=== PATIENT | female | born 1975 | race Caucasian/White ===

== ENCOUNTER 2017-07-09 14:30 | Observation (INO) | payer SELFPAY ==
[2017-07-09 14:31] VITALS: BMI 24.8
[2017-07-09] MEDS ORDERED: Sodium Chloride 0.9% 1,000 ML IV STA (15:43)
[2017-07-09 16:07] LABS: BASO # 0.1 K/uL (0.0-0.2); BASO % 0.9 % (0.0-2.0); EOS # 0.1 K/uL (0.0-0.7); EOS % 0.7 % (0.0-4.0); HEMOGLOBIN 14.7 g/dL (12.0-16.0); LYMPH # 2.7 K/uL (1.0-4.3); LYMPH % 26.3 % (20.0-40.0); MEAN CELL VOLUME 88.1 fl (81.0-99.0); MEAN CORPUSCULAR HEMOGLOBIN 29.5 pg (27.0-31.0); MEAN CORPUSCULAR HGB CONC 33.5 g/dL (33.0-37.0); MEAN PLATELET VOLUME 8.3 fl (7.2-11.7); MONO # 0.5 K/uL (0.0-0.8); MONO % 4.8 % (0.0-10.0); NEUT % 67.3 % (50.0-75.0); RBC 4.99 Mil/uL (3.80-5.20); RED CELL DISTRIBUTION WIDTH 13.2 % (11.5-14.5); WHITE BLOOD COUNT 10.5 K/uL (4.8-10.8)
[2017-07-09 16:19] LABS: ALB/GLOB RATIO 1.3 (1.0-2.1); ALBUMIN 4.4 g/dL (3.5-5.0); ALT/SGPT 27 U/L (9-52); AST/SGOT 26 U/L (14-36); BLOOD UREA NITROGEN 9 mg/dl (7-17); CALCIUM 9.6 mg/dL (8.4-10.2); GFR AFRICAN-AMERICAN > 60; GFR NON-AFRICAN AMERICAN > 60
--- NOTE | 2017-07-09 16:23 | RAD ---
HISTORY: COMPARISON: 02/21/2014. TECHNIQUE: Chest PA and lateral FINDINGS: LINES AND TUBES: None. LUNG AND PLEURA: The lungs are well inflated and clear. HEART AND MEDIASTINUM: The heart is not enlarged. The hilar and mediastinal contours are within normal limits. SKELETAL STRUCTURES: The bony structures are within normal limits for the patient's age. VISUALIZED UPPER ABDOMEN: Normal. OTHER FINDINGS: None. IMPRESSION: No active pulmonary disease.
[2017-07-09 16:35] LABS: PROTHROMBIN TIME 11.3 Seconds (9.8-13.1)
--- NOTE | 2017-07-09 18:29 | ED PDOC ---
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 Stating she dropped her child off at school, on walk back became SOB w/ the headache and "coldness" to her right arm. She feels the right arm is a bit heavier than the left but denies symptoms in lower extremity, or numbness, change in speech or vision. 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 She takes no medications now and denies history of blood clots, recent trauma, fever, malaise, or incoordination. NIHSS Stroke Scale - Date/Time Evaluation Performed Date Performed: 07/09/17 Time Performed: 15:02 When Was NIHSS Performed: Baseline - How Severe is the Stroke Level of Consciousness: 0=Alert LOC to Questions: 0=Both comments correct LOC to commands: 0=Obeys both correctly Best Gaze: 0=Normal Visual: 0=No visual loss Facial: 0=Normal Motor Arm - Left: 0=No drift Motor Arm - Right: 1=Drift noted before 10 sec Motor Leg - Left: 0=No drift Motor Leg - Right: 0=No drift Limb Ataxia: 0=Absent Sensory: 0=Normal Best Language: 0=No aphasia Dysarthia: 0=Normal articulation Extinction & Inattention (Neglect): 0=Normal, no object Score: 1 rTPA Inclusion/Exclusion - Refusal of Treatment Patient Refused Treatment: No - Inclusion Criteria for Altepase Patient is 18 years or Older: Yes The Clinical Diagnosis of Ischemic Stroke That is Causing a Potentially Disabling Neurological Deficit: Yes Time of Onset is Well Established to be Less Than 270 Minute Before Treatment Would Begin: No Risk/Benefit Discussed With Patient/Family Member Present: No - Warning to TPA With Conditions Following Conditions Weighed Against Anticipated Benefit: Yes Condition: Stroke Serevity Too Mild Past Medical History Reviewed: Historical Data, Nursing Documentation, Vital Signs Vital Signs: Last Vital Signs Temp 98.0 F 07/09/17 14:39 Pulse 87 07/09/17 14:39 Resp 16 07/09/17 16:12 BP 119/73 07/09/17 14:39 Pulse Ox 100 07/09/17 14:39 - Medical History PMH: CVA (?) - Surgical History Other surgeries: tubal lig - Family History Family History: States: Unknown Family Hx - Living Arrangements Living Arrangements: With Family - Social History Current smoker - smoking cessation education provided: No - Home Medications Home Medications: Ambulatory Orders Medication Instructions Recorded Aminogen (Supplement) 1 tab PO DAILY 02/21/14 B/Ca/Cr/Cu/mg/Mn/Se/Zinc [Joint 2 tab PO DAILY 02/21/14 Health Mineral Formulation] Ca Pantothenate/Folic Acid/V [Once 1 tab PO DAILY 02/21/14 Daily Multi-Vitamin] Calcium Carbonate [Calcium] 2 tab PO DAILY 02/21/14 Cell Support (Supplement) 1 tab PO DAILY 02/21/14 Garlic [Garlic] 1 tab PO DAILY 02/21/14 Relax Now Sleep Supplement 1 tab PO HS PRN 02/21/14 Aspirin [Ecotrin] 81 mg PO DAILY #7 ect 02/24/14 - Allergies Allergies/Adverse Reactions: Allergies Allergy/AdvReac Type Severity Reaction Status Date / Time No Known Allergies Allergy Verified 08/31/13 10:47 Review of Systems ROS Statement: Except As Marked, All Systems Reviewed And Found Negative Constitutional: Negative for: Fever, Chills Cardiovascular: Negative for: Chest Pain, Palpitations Respiratory: Positive for: Shortness of Breath, SOB with Exertion Gastrointestinal: Positive for: Nausea. Negative for: Abdominal Pain Genitourinary Female: Negative for: Dysuria, Frequency Musculoskeletal: Negative for: Neck Pain Skin: Negative for: Rash, Lesions Neurological: Positive for: Weakness, Headache, Dizziness. Negative for: Numbness, Incoordination, Change in Speech, Confusion, Seizures, Altered Mental Status Psych: Positive for: Anxiety. Negative for: Depression Physical Exam - Reviewed Nursing Documentation Reviewed: Yes Vital Signs Reviewed: Yes - Physical Exam Appears: Positive for: Well, Non-toxic, No Acute Distress Head Exam: Positive for: ATRAUMATIC, NORMAL INSPECTION, NORMOCEPHALIC Skin: Positive for: Normal Color, Warm, DRY Eye Exam: Positive for: EOMI, Normal appearance, PERRL ENT: Positive for: Normal ENT Inspection Neck: Positive for: Normal, Painless ROM Cardiovascular/Chest: Positive for: Regular Rate, Rhythm Respiratory: Positive for: CNT, Normal Breath Sounds Gastrointestinal/Abdominal: Positive for: Normal Exam, Bowel Sounds, Soft Back: Positive for: Normal Inspection Extremity: Positive for: Normal ROM Neurologic/Psych: Positive for: Alert, Oriented, Motor/Sensory Deficits ( strength upper ext 4/5, lower exts 5/5), Cerebellar Tests (grossly intact), Gait (normal). Negative for: Aphasia, Facial Droop - Laboratory Results Result Diagrams: 07/09/17 16:00 07/09/17 16:00 - ECG ECG: Positive for: Interpreted By Me ECG Rhythm: Positive for: Normal QRS, Normal ST Segment, Sinus Rhythm Rate: 88 O2 Sat by Pulse Oximetry: 100 Pulse Ox Interpretation: Normal Medical Decision Making Medical Decision Making: workup for atypical headache with RUE symptoms initiated Appears anxious, low dose ativan ordered labs/CT ordered Prior charts reviewed, neurology consult w MRI brain/CSpine reviewed- no ischemia Disposition - Clinical Impression Clinical Impression: Headache - Patient ED Disposition Is Patient to be Admitted: Transfer of Care - Disposition Disposition: Transfer of Care Disposition Time: 18:45 Condition: STABLE Patient Signed Over To: Pasquale Puckett Handoff Comments: pending CT, dispo
--- NOTE | 2017-07-09 19:15 | ED PDOC ---
- Laboratory Results Result Diagrams: 07/09/17 16:00 07/09/17 16:00 - ECG O2 Sat by Pulse Oximetry: 100 Medical Decision Making Medical Decision Makin:00 -Patient was transferred to pa by Dr. Salvador, pending head CT and reevaluation. 18:[address] FINDINGS: Brain: Unremarkable. No hemorrhage. No significant white matter disease. No edema. Ventricles: Unremarkable. No ventriculomegaly. Bones/joints: Unremarkable. No acute fracture. Soft tissues: Unremarkable. Sinuses: Unremarkable as visualized. No acute sinusitis. Mastoid air cells: Unremarkable as visualized. No mastoid effusion. IMPRESSION: No acute intracranial pathology. 20:15 - Spoke with Dr. Trinh who recommends Decadron Inj 10 mg Dextrose 5% in water 50 ml, Magnesium sulfate 2gm/50ml water 2 gm in 50 ml IV, Depacon Inj 500 mg Sodium Chloride 0.9% 100 ml IVPB, and to get admitted for observation. Rule out CVA, migraines and he will be on consult tomorrow. MRI will be performed tomorrow -Spoke with Dr. Macias to admit pt to hospital. Disposition Discussed With Dr.: Macias Ray Doctor Will See Patient In The: ED Counseled Patient/Family Regarding: Studies Performed, Diagnosis - Clinical Impression Clinical Impression: Headache, Paresthesias - POA Present On Arrival: None - Disposition Disposition: Hospitalized as Observation Patient Disposition Time: 20:27 Condition: FAIR
[2017-07-09] MEDS ORDERED: Dexamethasone 10 MG in Dextrose 5% In Water 50 ML IV ONE (20:21)
[2017-07-09] MEDS ORDERED: Valproate 500 MG in Sodium Chloride 0.9% 100 ML IVPB ONE (20:22)
--- NOTE | 2017-07-09 20:38 | CP.PCM.HP ---
History of Present Illness - History of Present Illness History of Present Illness: CC: MOISE and R arm paresthesias HPI: This is a 41 y/o female with ?Hx of migraines and possible prior CVA (2013 ) who comes in with R sided MOISE and some paresthesias as well as 'heavy sensation ' in her R arm. She has had some accompanying SOB sometimes. Denies numbness, outright focal weakness, difficulties with speech/swallowing, or vision. Denies any CP, f/c/n/v/d. NIH score was only ROS: 14 systems reviewed, negative other than HPI MHx: ?migraines, ?CVA -- or may have been somatoform disorder per chart SHx: None Allergies: NKDA Medications: per med rec Family Hx: Patient cannot provide any relevant family Hx Social Hx: Lives with family, no Present on Admission - Present on Admission Any Indicators Present on Admission: No Past Patient History - Past Medical History & Family History Past Medical History?: Yes - Past Social History Smoking Status: Never Smoked - MUSCULOSKELETAL/RHEUMATOLOGICAL Hx Falls: No - PSYCHIATRIC Hx Substance Use: No - SURGICAL HISTORY Hx Surgeries: Yes Hx Tubal Ligation: Yes Other/Comment: VARICOSE VEINS SURGERY - ANESTHESIA Hx Anesthesia: Yes Hx Anesthesia Reactions: No Hx Malignant Hyperthermia: No Meds Allergies/Adverse Reactions: Allergies Allergy/AdvReac Type Severity Reaction Status Date / Time No Known Allergies Allergy Verified 08/31/13 10:47 Physical Exam - Constitutional Appears: No Acute Distress - Head Exam Head Exam: ATRAUMATIC, NORMOCEPHALIC - Eye Exam Eye Exam: EOMI, PERRL - ENT Exam ENT Exam: Mucous Membranes Moist - Neck Exam Neck exam: Positive for: Full Rom, Tenderness - Respiratory Exam Respiratory Exam: Clear to Auscultation Bilateral, NORMAL BREATHING PATTERN - Cardiovascular Exam Cardiovascular Exam: REGULAR RHYTHM, +S1, +S2 - GI/Abdominal Exam GI & Abdominal Exam: Normal Bowel Sounds, Soft - Extremities Exam Extremities exam: Positive for: full ROM, normal inspection - Neurological Exam Neurological exam: Alert, CN II-XII Intact, Oriented x3 - Psychiatric Exam Psychiatric exam: Normal Affect, Normal Mood - Skin Skin Exam: Dry, Warm Results - Vital Signs Recent Vital Signs: Last Vital Signs Temp 98.0 F 07/09/17 14:39 Pulse 88 07/09/17 18:34 Resp 16 07/09/17 18:10 BP 126/74 07/09/17 18:10 Pulse Ox 100 07/09/17 19:33 - Labs Result Diagrams: 07/09/17 16:00 07/09/17 16:00 Labs: Laboratory Results - last 24 hr 07/09/17 07/09/17 07/09/17 16:00 16:00 16:00 WBC 10.5 D RBC 4.99 Hgb 14.7 Hct 44.0 MCV 88.1 MCH 29.5 MCHC 33.5 RDW 13.2 Plt Count 293 MPV 8.3 Neut % (Auto) 67.3 Lymph % (Auto) 26.3 [place] % (Auto) 4.8 Eos % (Auto) 0.7 Baso % (Auto) 0.9 Neut # (Auto) 7.0 Lymph # (Auto) 2.7 [place] # (Auto) 0.5 Eos # (Auto) 0.1 Baso # (Auto) 0.1 PT 11.3 INR 1.0 APTT 30.0 D-Dimer, Quantitative 92 Sodium 144 Potassium 3.7 Chloride 105 Carbon Dioxide 24 Anion Gap 19 BUN 9 Creatinine 0.6 L Est GFR ( Amer) > 60 Est GFR (Non-Af Amer) > 60 Random Glucose 101 Calcium 9.6 Total Bilirubin 0.6 AST 26 ALT 27 Alkaline Phosphatase 76 Troponin I < 0.0120 Total Protein 7.9 Albumin 4.4 Globulin 3.4 Albumin/Globulin Ratio 1.3 - EKG Data EKG Interpreted by: Myself EKG shows normal: Sinus rhythm Rate: Normal - Imaging and Cardiology CT scan - head Status: Report reviewed by me (Head CT) Assessment & Plan (1) Headache Assessment and Plan: 41 y/o female presenting with complex migraine vs. TIA. -Admit tele -serial trops -pending MRI, echo, carotid ultrasound -Continue ASA -Patient received multiple medications for migraine-- improved now -Neuro consult (Ziggy) in AM -DVT PPx with lovenox Status: Acute (2) CVA (cerebral infarction) Status: Acute (3) DVT prophylaxis Status: Acute
[2017-07-09] MEDS ORDERED: Magnesium Sulfate 2 gm/50 ml 2 GM/50 ML BAG IV ONE (20:45)
[2017-07-09] MEDS ORDERED: Magnesium Sulfate 2 gm/50 ml 2 GM/50 ML BAG ONE (21:31)
[2017-07-10 06:10] LABS: HEMOGLOBIN 15.1 g/dL (12.0-16.0); MEAN CELL VOLUME 88.8 fl (81.0-99.0); MEAN CORPUSCULAR HEMOGLOBIN 29.4 pg (27.0-31.0); MEAN CORPUSCULAR HGB CONC 33.1 g/dL (33.0-37.0); RBC 5.14 Mil/uL (3.80-5.20); RED CELL DISTRIBUTION WIDTH 13.2 % (11.5-14.5); WHITE BLOOD COUNT 6.6 K/uL (4.8-10.8)
[2017-07-10 06:32] LABS: BLOOD UREA NITROGEN 12 mg/dl (7-17); CALCIUM 8.8 mg/dL (8.4-10.2); GFR AFRICAN-AMERICAN > 60; GFR NON-AFRICAN AMERICAN > 60
--- NOTE | 2017-07-10 08:41 | CT ---
PROCEDURE: CT HEAD WITHOUT CONTRAST. HISTORY: headache COMPARISON: CT head dated 02/21/2014. TECHNIQUE: Axial computed tomography images were obtained through the head/brain without intravenous contrast. Radiation dose: Total exam DLP = 778.6 mGy-cm. This CT exam was performed using one or more of the following dose reduction techniques: Automated exposure control, adjustment of the mA and/or kV according to patient size, and/or use of iterative reconstruction technique. FINDINGS: HEMORRHAGE: No intracranial hemorrhage. BRAIN: No mass effect or edema. Right basal ganglia lacunar infarction. No atrophy or chronic microvascular ischemic changes. VENTRICLES: Unremarkable. No hydrocephalus. CALVARIUM: Unremarkable. PARANASAL SINUSES: Unremarkable as visualized. No significant inflammatory changes. MASTOID AIR CELLS: Unremarkable as visualized. No inflammatory changes. OTHER FINDINGS: None. IMPRESSION: No acute intracranial pathology.
--- NOTE | 2017-07-10 08:46 | MRI ---
PROCEDURE: MRI BRAIN WITHOUT CONTRAST HISTORY: Headache, paresthesia COMPARISON: Noncontrast head CT from 07/09/2017 and MRI brain with contrast from 02/23/2014 TECHNIQUE: Multiplanar, multisequence MR images of the brain were obtained without intravenous contrast enhancement. FINDINGS: HEMORRHAGE: None DWI: No evidence of an acute or early subacute infarction. BRAIN PARENCHYMA: Berger-white matter differentiation is preserved. There is no mass, mass effect or abnormal extra-axial fluid collection. There is no territorial infarction. VENTRICLES: The ventricles are normal in size, shape and configuration. CRANIUM: There is normal bone marrow signal pattern ORBITS: Grossly unremarkable. PARANASAL SINUSES/MASTOIDS: Predominantly clear. VASCULAR SYSTEM: There are normal signal voids in the larger intracranial arteries. OTHER FINDINGS: None. IMPRESSION: No acute intracranial abnormality. Essentially normal noncontrast MRI of the brain.
[2017-07-10] MEDS ORDERED: Enoxaparin 40 mg Syringe SC SCH (09:00)
--- NOTE | 2017-07-10 09:07 | US ---
PROCEDURE: Duplex ultrasound of the carotid and vertebral arteries. HISTORY: TIA COMPARISON: None available. TECHNIQUE: Grayscale and duplex Doppler evaluation of the cervical carotid and vertebral arteries were performed. The common carotid, carotid bifurcations and cervical ICA and proximal ECA were evaluated. The vertebral arteries were evaluated for gross patency and direction. FINDINGS: RIGHT CAROTID ARTERIES: Common Carotid Artery: Normal. Maximal flow velocity of 89.1 cm/s. Carotid Bifurcation: Normal. Internal Carotid Artery:Normal. Maximal flow velocity of 84.6 cm/s. External Carotid Artery (proximal branches): Normal. Maximal flow velocity of 71.4 cm/s. ICA/CCA Ratio: 0.9 LEFT CAROTID ARTERIES: Common Carotid Artery: Normal. Maximal flow velocity of 113.4 cm/s. Carotid Bifurcation: Normal. Internal Carotid Artery:Normal. Maximal flow velocity of 85.4 cm/s. External Carotid Artery (proximal branches): Normal. Maximal flow velocity of 85.4 cm/s. ICA/CCA Ratio: 0.8 VERTEBRAL ARTERIES: Right Vertebral Artery: Patent. Antegrade flow. Left Vertebral Artery: Patent. Antegrade flow. OTHER FINDINGS: None. IMPRESSION: Per NASCET criteria, no stenosis of the internal carotid arteries bilaterally.
[2017-07-10 12:33] LABS: HDL CHOLESTEROL 43 MG/DL (30-70)
[2017-07-10 12:45] LABS: LDL CHOLESTEROL 159 mg/dL (0-129)
[2017-07-10 13:03] VITALS: TEMP 98.6
--- NOTE | 2017-07-10 13:59 | CP.PCM.CON ---
History of Present Illness - History of Present Illness History of Present Illness: Neurology Consult Note: Mrs. Tex Marshall is a 41-year-old woman with a past medical history of complicated migraines who presented yesterday to the ED with right side headache and a feeling of right arm heaviness/weakness. She was treated with aspirin, decadron, magnesium sulfate and depakote. MRI of the brain was normal. Review of Systems - Review of Systems All systems: reviewed and no additional remarkable complaints except Past Patient History - Past Medical History & Family History Past Medical History?: Yes - Past Social History Smoking Status: Never Smoked - MUSCULOSKELETAL/RHEUMATOLOGICAL Hx Falls: No - PSYCHIATRIC Hx Substance Use: No - SURGICAL HISTORY Hx Surgeries: Yes Hx Tubal Ligation: Yes Other/Comment: VARICOSE VEINS SURGERY - ANESTHESIA Hx Anesthesia: Yes Hx Anesthesia Reactions: No Hx Malignant Hyperthermia: No Meds Allergies/Adverse Reactions: Allergies Allergy/AdvReac Type Severity Reaction Status Date / Time No Known Allergies Allergy Verified 08/31/13 10:47 - Medications Medications: Current Medications Acetaminophen (Tylenol 325mg Tab) 650 mg PO Q6 PRN PRN Reason: Pain, Mild (1-3) or headache Aspirin (Ecotrin) 81 mg PO DAILY [facility] Last Admin: 07/10/17 08:50 Dose: 81 mg Enoxaparin Sodium (Lovenox) 40 mg SC DAILY [facility] PRN Reason: Protocol Last Admin: 07/10/17 08:50 Dose: 40 mg Physical Exam - Constitutional Appears: Well - Head Exam Head Exam: ATRAUMATIC, NORMAL INSPECTION, NORMOCEPHALIC - Eye Exam Eye Exam: EOMI, Normal appearance, PERRL - ENT Exam ENT Exam: Mucous Membranes Moist, Normal Exam - GI/Abdominal Exam GI & Abdominal Exam: Normal Bowel Sounds, Soft. absent: Tenderness - Rectal Exam Rectal Exam: Deferred - Back Exam Back exam: NORMAL INSPECTION - Neurological Exam Neurological exam: Alert, CN II-XII Intact, Normal Gait, Oriented x3, Reflexes Normal Results - Vital Signs Recent Vital Signs: Last Vital Signs Temp 98.6 F 07/10/17 13:01 Pulse 83 07/10/17 13:01 Resp 19 07/10/17 13:01 BP 106/56 L 07/10/17 13:01 Pulse Ox 98 07/10/17 13:01 - Labs Result Diagrams: 07/10/17 06:06 07/10/17 06:06 Labs: Laboratory Results - last 24 hr 07/09/17 07/09/17 07/09/17 16:00 16:00 16:00 WBC 10.5 D RBC 4.99 Hgb 14.7 Hct 44.0 MCV 88.1 MCH 29.5 MCHC 33.5 RDW 13.2 Plt Count 293 MPV 8.3 Neut % (Auto) 67.3 Lymph % (Auto) 26.3 [place] % (Auto) 4.8 Eos % (Auto) 0.7 Baso % (Auto) 0.9 Neut # (Auto) 7.0 Lymph # (Auto) 2.7 [place] # (Auto) 0.5 Eos # (Auto) 0.1 Baso # (Auto) 0.1 PT 11.3 INR 1.0 APTT 30.0 D-Dimer, Quantitative 92 Sodium 144 Potassium 3.7 Chloride 105 Carbon Dioxide 24 Anion Gap 19 BUN 9 Creatinine 0.6 L Est GFR ( Amer) > 60 Est GFR (Non-Af Amer) > 60 Random Glucose 101 Calcium 9.6 Total Bilirubin 0.6 AST 26 ALT 27 Alkaline Phosphatase 76 Troponin I < 0.0120 Total Protein 7.9 Albumin 4.4 Globulin 3.4 Albumin/Globulin Ratio 1.3 Triglycerides Cholesterol LDL Cholesterol Direct HDL Cholesterol 07/10/17 07/10/17 07/10/17 01:36 06:06 06:06 WBC 6.6 RBC 5.14 Hgb 15.1 Hct 45.6 MCV 88.8 MCH 29.4 MCHC 33.1 RDW 13.2 Plt Count 287 MPV Neut % (Auto) Lymph % (Auto) [place] % (Auto) Eos % (Auto) Baso % (Auto) Neut # (Auto) Lymph # (Auto) [place] # (Auto) Eos # (Auto) Baso # (Auto) PT INR APTT D-Dimer, Quantitative Sodium 142 Potassium 4.4 Chloride 107 Carbon Dioxide 21 L Anion Gap 18 BUN 12 Creatinine 0.5 L Est GFR ( Amer) > 60 Est GFR (Non-Af Amer) > 60 Random Glucose 144 H Calcium 8.8 Total Bilirubin AST ALT Alkaline Phosphatase Troponin I < 0.0120 < 0.0120 Total Protein Albumin Globulin Albumin/Globulin Ratio Triglycerides Cholesterol LDL Cholesterol Direct HDL Cholesterol 07/10/17 12:07 WBC RBC Hgb Hct MCV MCH MCHC RDW Plt Count MPV Neut % (Auto) Lymph % (Auto) [place] % (Auto) Eos % (Auto) Baso % (Auto) Neut # (Auto) Lymph # (Auto) [place] # (Auto) Eos # (Auto) Baso # (Auto) PT INR APTT D-Dimer, Quantitative Sodium Potassium Chloride Carbon Dioxide Anion Gap BUN Creatinine Est GFR ( Amer) Est GFR (Non-Af Amer) Random Glucose Calcium Total Bilirubin AST ALT Alkaline Phosphatase Troponin I Total Protein Albumin Globulin Albumin/Globulin Ratio Triglycerides 82 Cholesterol 226 H LDL Cholesterol Direct 159 H HDL Cholesterol 43 Assessment & Plan (1) Complicated migraine Assessment and Plan: The patient responded well to the IV therapy she was given in the ED. No prophylactic medication is needed at this time. Follow up with outpatient neurology. No further work-up needed since imaging and other studies are normal. Thank you. Status: Acute Priority: High
[2017-07-10 16:14] VITALS: BP 117/68; PULSE 81; RESP 26; O2SAT 96
--- NOTE | 2017-07-10 16:23 | CP.PCM.DIS ---
Provider - Provider Date of Admission: 07/09/17 20:27 Attending physician: Gilberto Borjas MD Consults: Neurology: Dr Trinh Time Spent in preparation of Discharge (in minutes): 40 Diagnosis - Discharge Diagnosis (1) Complicated migraine Status: Acute Priority: High (2) CVA (cerebral infarction) Status: Ruled-out Comment: ruled out Hospital Course - Lab Results Lab Results: Most Recent Lab Values WBC 6.6 K/uL (4.8-10.8) 07/10/17 06:06 RBC 5.14 Mil/uL (3.80-5.20) 07/10/17 06:06 Hgb 15.1 g/dL (12.0-16.0) 07/10/17 06:06 Hct 45.6 % (34.0-47.0) 07/10/17 06:06 MCV 88.8 fl (81.0-99.0) 07/10/17 06:06 MCH 29.4 pg (27.0-31.0) 07/10/17 06:06 MCHC 33.1 g/dL (33.0-37.0) 07/10/17 06:06 RDW 13.2 % (11.5-14.5) 07/10/17 06:06 Plt Count 287 K/uL (130-400) 07/10/17 06:06 MPV 8.3 fl (7.2-11.7) 07/09/17 16:00 Neut % (Auto) 67.3 % (50.0-75.0) 07/09/17 16:00 Lymph % (Auto) 26.3 % (20.0-40.0) 07/09/17 16:00 [place] % (Auto) 4.8 % (0.0-10.0) 07/09/17 16:00 Eos % (Auto) 0.7 % (0.0-4.0) 07/09/17 16:00 Baso % (Auto) 0.9 % (0.0-2.0) 07/09/17 16:00 Neut # (Auto) 7.0 K/uL (1.8-7.0) 07/09/17 16:00 Lymph # (Auto) 2.7 K/uL (1.0-4.3) 07/09/17 16:00 [place] # (Auto) 0.5 K/uL (0.0-0.8) 07/09/17 16:00 Eos # (Auto) 0.1 K/uL (0.0-0.7) 07/09/17 16:00 Baso # (Auto) 0.1 K/uL (0.0-0.2) 07/09/17 16:00 PT 11.3 Seconds (9.8-13.1) 07/09/17 16:00 INR 1.0 (0.9-1.2) 07/09/17 16:00 APTT 30.0 Seconds (25.6-37.1) 07/09/17 16:00 D-Dimer, Quantitative 92 ng/mlDDU (0-230) 07/09/17 16:00 Sodium 142 mmol/l (132-148) 07/10/17 06:06 Potassium 4.4 MMOL/L (3.6-5.0) 07/10/17 06:06 Chloride 107 mmol/L (98-107) 07/10/17 06:06 Carbon Dioxide 21 mmol/L (22-30) L 07/10/17 06:06 Anion Gap 18 (10-20) 07/10/17 06:06 BUN 12 mg/dl (7-17) 07/10/17 06:06 Creatinine 0.5 mg/dl (0.7-1.2) L 07/10/17 06:06 Est GFR ( Amer) > 60 07/10/17 06:06 Est GFR (Non-Af Amer) > 60 07/10/17 06:06 Random Glucose 144 mg/dL (65-105) H 07/10/17 06:06 Calcium 8.8 mg/dL (8.4-10.2) 07/10/17 06:06 Total Bilirubin 0.6 mg/dl (0.2-1.3) 07/09/17 16:00 AST 26 U/L (14-36) 07/09/17 16:00 ALT 27 U/L (9-52) 07/09/17 16:00 Alkaline Phosphatase 76 U/L (38-126) 07/09/17 16:00 Troponin I < 0.0120 ng/mL (0.00-0.120) 07/10/17 06:06 Total Protein 7.9 G/DL (6.3-8.2) 07/09/17 16:00 Albumin 4.4 g/dL (3.5-5.0) 07/09/17 16:00 Globulin 3.4 gm/dL (2.2-3.9) 07/09/17 16:00 Albumin/Globulin Ratio 1.3 (1.0-2.1) 07/09/17 16:00 Triglycerides 82 mg/DL (0-149) 07/10/17 12:07 Cholesterol 226 mg/dL (0-199) H 07/10/17 12:07 LDL Cholesterol Direct 159 mg/dL (0-129) H 07/10/17 12:07 HDL Cholesterol 43 MG/DL (30-70) 07/10/17 12:07 - Hospital Course Hospital Course: 41 y/o lady with hx of Migraine, came in because of right sided headache and right arm numbness. In the ED , CT of head done was negative. Pt was observed in ED. She was started on ASA and Statin. Neurology was consulted. Dr Trinh rec giving IV Magnesium, Depakote and Decadron. Patient' s headache resolved and numbness resolved. MRI of the Brain done was negative. Carotid Sonogram did not show any significant stenosis . Dr Trinh cleared pt for d/c and felt that this is a Complicated Migraine. Discharge Exam - Head Exam Head Exam: ATRAUMATIC, NORMAL INSPECTION, NORMOCEPHALIC - Eye Exam Eye Exam: EOMI, Normal appearance Pupil Exam: NORMAL ACCOMODATION - ENT Exam ENT Exam: Mucous Membranes Moist, Normal External Ear Exam - Neck Exam Neck exam: Full Rom - Respiratory Exam Respiratory Exam: NORMAL BREATHING PATTERN. absent: Respiratory Distress - Cardiovascular Exam Cardiovascular Exam: REGULAR RHYTHM, +S1, +S2 - GI/Abdominal Exam GI & Abdominal Exam: Normal Bowel Sounds, Soft. absent: Tenderness - Extremities Exam Extremities exam: full ROM, normal capillary refill, pedal pulses present - Back Exam Back exam: FULL ROM, NORMAL INSPECTION. absent: CVA tenderness (L), CVA tenderness (R), paraspinal tenderness, vertebral tenderness - Neurological Exam Neurological exam: Alert, CN II-XII Intact, Normal Gait, Oriented x3, Reflexes Normal - Psychiatric Exam Psychiatric exam: Normal Affect, Normal Mood - Skin Skin Exam: Dry, Normal Color, Warm Discharge Plan - Follow Up Plan Condition: GOOD Disposition: HOME/ ROUTINE Instructions: Cluster Headache Additional Instructions: ff up [facility] in 1-2 wks ff up with Neurology as outpt Referrals: [facility] [place] [Outside]
--- NOTE | 2017-07-10 19:49 | CARD ---
APPROVED REPORT EXAM: Two-dimensional and M-mode echocardiogram with Doppler and color Doppler. Other Information Quality : GoodRhythm : NSR INDICATION CVA/TIA Echo Enhancing Agent Indication: Rule Out Septal Defect Agent/Amount Used: Agitated Saline 2D DIMENSIONS IVSd0.75 (0.7-1.1cm)LVDd4.41 (3.9-5.9cm) LVOT Diameter2.04 (1.8-2.4cm)PWd0.70 (0.7-1.1cm) IVSs1.05 (0.8-1.2cm)LVDs2.64 (2.5-4.0cm) FS (%) 40.1 %PWs1.40 (0.8-1.2cm) LVEF (%)55.0 (>50%) M-Mode DIMENSIONS Left Atrium (MM)3.35 (2.5-4.0cm)IVSd0.98 (0.7-1.1cm) Aortic Root2.57 (2.2-3.7cm)LVDd4.17 (4.0-5.6cm) Aortic Cusp Exc.1.72 (1.5-2.0cm)PWd0.98 (0.7-1.1cm) IVSs1.31 cmFS (%) 38 % LVDs2.57 (2.0-3.8cm)PWs1.36 cm Mitral Valve MV E Lrqrawjg76.2cm/sMV DECEL [id number] A Hghzkwgq29.3cm/s MV PUH36ivX/A ratio1.4MVA (PHT)3.74cm2 TDI Lateral E' Peak V17.76cm/sMedial E' Peak V11.24cm/sE/Lateral E'3.8 E/Medial E'6.1 Pulmonary Valve PV Peak Bzqpondt002.7cm/s Tricuspid Valve TR Peak Nrecymcp355pg/sRAP [id number] Peak Gr.16mmHg [id number] LEFT VENTRICLE The left ventricle is normal size. There is normal left ventricular wall thickness. The left ventricular function is normal. The left ventricular ejection fraction is within the normal range. There is normal LV segmental wall motion. The left ventricular diastolic function is normal. RIGHT VENTRICLE The right ventricle is normal size. There is normal right ventricular wall thickness. The right ventricular systolic function is normal. ATRIA The left atrium size is normal. The right atrium size is normal. The interatrial septum is intact with no evidence for an atrial septal defect. AORTIC VALVE The aortic valve is normal in structure. No aortic regurgitation is present. There is no aortic valvular stenosis. MITRAL VALVE The mitral valve is normal in structure. There is no mitral valve stenosis. There is no mitral valve regurgitation noted. TRICUSPID VALVE The tricuspid valve is normal in structure. There is no tricuspid valve regurgitation noted. PULMONIC VALVE The pulmonary valve is normal in structure. There is no pulmonic valvular regurgitation. GREAT VESSELS The aortic root is normal in size. The IVC is normal in size and collapses >50% with inspiration. PERICARDIAL EFFUSION The pericardium appears normal. <Conclusion> The left ventricle is normal size. There is normal left ventricular wall thickness. The left ventricular function is normal. The left ventricular ejection fraction is within the normal range. There is normal LV segmental wall motion. The left ventricular diastolic function is normal. The interatrial septum is intact with no evidence for an atrial septal defect.
--- NOTE | 2017-07-10 20:41 | CARD ---
APPROVED REPORT EKG Measurement Heart [id number] WY [id number] TC260K12 [id number] <Conclusion> Normal sinus rhythm Normal ECG
== END 2017-07-10 17:00 | disposition home or self-care (01) ==
LOC: H.ER 14:30 → H.ERHOLD 20:27
PROVIDERS: ADMIT Internal Medicine; ATTEND Internal Medicine
DX: G43.109 Migraine with aura, not intractable, without status migrainosus (principal)
CPT/HCPCS: 70450; 70551; 71046; 80048; 80053; 80061; 84484; 85025; 85027; 85378; 85610; 85730; 93005; 93306; 93880; 96365; 96367; 96372; 96375; 99284; G0378; J1100; J1650; J1885; J2060; J7040